=== PATIENT | male | born 1955 | race Caucasian/White ===

== ENCOUNTER 2021-03-15 12:44 | Emergency (ER) | payer MEDICARE, BC, SELFPAY ==
--- NOTE | ~2021-03-15 | XR_ITS ---
EXAMINATION: XR finger 1st LT min 2V INDICATION: Left first finger laceration TECHNIQUE: Three views of the left first finger are obtained. COMPARISON: None available FINDINGS: There is a soft tissue defect involving the distal tuft of the left first finger. No underl rui osseous abnormality is identified. The bones and joint spaces are without acute abnormality. IMPRESSION: 1. Soft tissue defect involving the distal tuft of the left first finger without underlying osseous a bnormality. Reviewed, dictated and finalized at location B. IMPRESSION: 1. Soft tissue defect involving the distal tuft of the left first finger withou t underlying osseous abnormality.
[2021-03-15 12:55] VITALS: BP 134/83; PULSE 90; RESP 12; TEMP 36.8; O2SAT 97
--- NOTE | 2021-03-15 14:33 | ED.WOUNDLAC ---
HPI - Wound/Laceration General Chief Complaint: Wound/Laceration Stated Complaint: lt hand thumb laceration Source: patient and RN notes reviewed Mode of arrival: ambulatory History of Present Illness HPI narrative: This is a 65-year-old male who presented to our urgent care after a laceration to his right thumb status post trauma with a saw. Area was sutured in glue in place there were 4 sutures placed to the site in minimal amount of glue to thin area. Patient does have sensation to the area no bones or ligament visible x-ray completed no fractures dislocation or foreign objects Insight. The patient denies SOB, CP, palpitation, extremity numbness, lightheadedness, dizziness, constipation, diarrhea, chills, or fever. No obvious signs or symptoms of infection Related Data Home Medications Medication Instructions Recorded Confirmed atorvastatin 10 mg tablet 10 mg PO DAILY tablet 07/17/20 07/17/20 bupropion HCl 300 mg 24 hr tablet, mg PO 07/17/20 07/17/20 extended release citalopram 40 mg tablet 40 mg PO DAILY tablet 07/17/20 07/17/20 lamotrigine 100 mg tablet 100 mg PO BID tablet 07/17/20 07/17/20 tamsulosin 0.4 mg capsule mg PO 07/17/20 07/17/20 Allergies Allergy/AdvReac Type Severity Reaction Status Date / Time No Known Allergies Allergy Verified 03/15/21 12:52 Review of Systems Review of Systems: Narrative: A 14 organ system Review of Systems was performed and pertinent positives included in the HPI, otherwise remaining ROS is negative. All systems reviewed & are unremarkable except as noted in HPI and below PMFSH Past Medical History Medical History (Updated 03/15/21 @ 14:32 by JANENE Enrique-Cielo) Anxiety Colon cancer screening Family History Family History Father Dementia Sibling Diabetes mellitus Social History Social History Years smoked: 30 Smoking status: Former smoker Smokeless tobacco user: chewing tobacco Alcohol intake: current Exam Narrative: Exam Narrative: GENERAL: This is a well-nourished, well-developed patient, in no apparent distress. HEAD: normocephalic, atraumatic. EYES: PERRL. Sclera clear/white. Vision is grossly intact. EARS: External ears normal, auditory canals clear and without drainage, TMs normal without perforation. Hearing grossly intact. NOSE: External nose normal with no obvious nasal discharge, nares without redness, no rhinorrhea. THROAT: Mucous membranes moist, posterior pharynx clear. NECK: Neck supple, non-tender without lymphadenopathy, masses or thyromegaly. CARDIOVASCULAR: Regular rate and rhythm without murmurs, gallops, or rubs. RESPIRATORY: Clear to auscultation. Breath sounds equal bilaterally. No wheezes, rales, or rhonchi. GASTROINTESTINAL: Abdomen soft, non-tender, nondistended. Bowel sounds are active. No hepato-splenomegaly, or palpable masses. No guarding. SKIN: Laceration to tip of thumb region areas. Flap of skin placed back in place 4 sutures placed in each corner and glue placed in between suture sites NEURO: awake, alert, and oriented to person, place and time. There were no obvious focal neurologic abnormalities. Steady gait EXTREMITIES: Normal range of motion. No edema. No calf tenderness. Negative Homans sign bilaterally. BACK: Nontender without deformity or crepitance. No flank tenderness. Course Vital Signs Vital signs: Vital Signs Temperature 98.2 F 03/15/21 12:55 Pulse Rate 90 03/15/21 12:55 Respiratory Rate 12 03/15/21 12:55 Blood Pressure 134/83 03/15/21 12:55 Pulse Oximetry 97 03/15/21 12:55 Temperature 98.2 F 03/15/21 12:55 Pulse Rate 90 03/15/21 12:55 Respiratory Rate 12 03/15/21 12:55 Blood Pressure 134/83 03/15/21 12:55 Pulse Oximetry 97 03/15/21 12:55 Discharge Plan Discharge Clinical Impression: Laceration Patient Disposition: Home, Self-Care Condition: Stab
[2021-03-15] MEDS: TETANUS,DIPHTHERIA,AC PERTUSSIS ADULT (0.5 ML) BOOSTRIX IM (14:43)
== END 2021-03-15 14:56 | disposition home or self-care (01) ==
PROVIDERS: Emergency Provider Nurse Practitioner; PCP Internal Medicine
DX: S61.012A Laceration without foreign body of left thumb without damage to nail, initial encounter (principal); W27.0XXA Contact with workbench tool, initial encounter; F41.9 Anxiety disorder, unspecified; Z87.891 Personal history of nicotine dependence; Z23 Encounter for immunization
CPT/HCPCS: 12001; 73140; 90471; 90715; 99213; G0463

== ENCOUNTER 2021-03-27 11:56 | Emergency (ER) | payer MEDICARE, BC, SELFPAY ==
--- NOTE | 2021-03-27 11:57 | ED.GENADULT ---
HPI - General Adult General Chief complaint: Wound/Laceration Stated complaint: remove stitches Time Seen by Provider: 03/27/21 12:07 Source: patient and RN notes reviewed Mode of arrival: ambulatory Limitations: no limitations History of Present Illness HPI narrative: 65-year-old male presents to have sutures removed from LT thumb (1st finger). ?Healing wound to LT thumb (1st finger) with [address] ?No concern for infection of the wound. ?No tenderness, erythema, or swelling to the area. ?No fever or chills. ?No drainage. ?No streaking. ?Nitin has been following recent discharge instructions. ?Dominant hand is the RIGHT HAND. Denies nausea and vomiting. ?Remains active. Immunizations up-to-date. ?The patient reports he has not been diagnosed with COVID-19. ?The patient reports he received 2 Moderna COVID-19 vaccines. ?The patient reports he is not waiting for the results of a COVID-19 lab test. The patient reports he does not have weakness, fatigue, or myalgia. ?The patient reports he does not have a new or worsening cough or shortness of breath. ?The patient reports he does not have any rhinorrhea, congestion, loss of taste, sore throat, and diarrhea. Denies recent traveling. ?Denies concerns for COVID-19 or exposures. ?At this time, the patient is not suspected of having COVID-19. Some parts of this dictation were generated by voice recognition software and may contain typographical and/or grammatical inaccuracies. Related Data Home Medications Medication Instructions Recorded Confirmed atorvastatin 10 mg tablet 10 mg PO DAILY tablet 07/17/20 03/15/21 bupropion HCl 300 mg 24 hr tablet, 300 mg PO DAILY 07/17/20 03/15/21 extended release citalopram 40 mg tablet 40 mg PO DAILY tablet 07/17/20 03/15/21 lamotrigine 100 mg tablet 100 mg PO BID tablet 07/17/20 03/15/21 tamsulosin 0.4 mg capsule 0.4 mg PO DAILY 07/17/20 03/15/21 Allergies Allergy/AdvReac Type Severity Reaction Status Date / Time No Known Allergies Allergy Verified 03/15/21 12:52 Review of Systems Review of Systems: CONSTITUTIONAL: Denies fever, chills, sweats. EYES: Denies visual changes, redness, discharge. ENT: Denies rhinorrhea, congestion, sore throat, otalgia. CARDIOVASCULAR: Denies chest pain, palpitations, edema. RESPIRATORY: Denies dyspnea, wheezing, cough. GASTROINTESTINAL: Denies abdominal pain, nausea, vomiting, diarrhea. SKIN: Denies rash or itching. Complaints of needing sutures removed from the left thumb (1st finger). MUSCULOSKELETAL: Denies acute back pain, joint pain, or myalgia. NEUROLOGIC: Denies numbness or focal weakness. PSYCHIATRIC: Denies anxiety or depression. All other systems reviewed are negative, except as documented in HPI and below. [facility] Past Medical History Medical History (Updated 03/27/21 @ 12:23 by JANENE Schmidt) Anxiety Colon cancer screening Depression History of BPH History of gastroesophageal reflux (GERD) Hypercholesteremia Skin mole Surgical History Surgical History (Updated 03/27/21 @ 12:23 by JANENE Schmidt) History of rhinoplasty History of surgical removal of skin lesion from left ear Family History Family History (Updated 03/27/21 @ 12:24 by JANENE Schmidt) Father , 08/13 COVID n[place]ita Taver[place] Dementia Sibling Diabetes mellitus Mother Breast cancer Lung cancer Social History Social History (Updated 03/27/21 @ 12:24 by JANENE Schmidt) Years smoked: 30 Smoking status: Former smoker Smokeless tobacco user: chewing tobacco Alcohol intake: current Substance use: never Substance use type: does not use Living arrangements: with family Occupation/Education: retired Gender identity (if verbalized by the patient): Male Sexual Orientation (if Verbalized by the Patient): Straight or Heterosexual Comments At time of signature, agree with the nurse past medical, surgical, social, and family history.
[2021-03-27 12:02] VITALS: BP 126/74; PULSE 82; RESP 12; TEMP 36.8; O2SAT 96
== END 2021-03-27 12:24 | disposition home or self-care (01) ==
PROVIDERS: Emergency Provider Nurse Practitioner Family; PCP Internal Medicine
DX: S61.012D Laceration without foreign body of left thumb without damage to nail, subsequent encounter (principal); X58.XXXD Exposure to other specified factors, subsequent encounter; F41.9 Anxiety disorder, unspecified; F32.9 Major depressive disorder, single episode, unspecified; N40.0 Benign prostatic hyperplasia without lower urinary tract symptoms; K21.9 Gastro-esophageal reflux disease without esophagitis; E78.00 Pure hypercholesterolemia, unspecified; Z87.891 Personal history of nicotine dependence
CPT/HCPCS: 99211; G0463

== ENCOUNTER 2021-11-05 09:36 | Outpatient (CLI) | payer MEDICARE, BC, SELFPAY ==
--- NOTE | ~2021-11-05 | XR_ITS ---
XR abdomen/kub 1V 11/05/2021 10:04 INDICATION: Gross hematuria TECHNIQUE: KUB COMPARISON: None FINDINGS: Bowel gas pattern is normal. There is no evidence of free air, mass, organomegaly, ascites or obstruction. No abnormal calculi are seen. The bones appear intact. IMPRESSION: 1: No acute abdominal abnormality identified. Reviewed, dictated and finalized at location B.
--- NOTE | ~2021-11-05 | CT_ITS ---
EXAMINATION: CT abdomen pelvis wo/w con DATE: 11/05/2021 10:27 INDICATION: Gross hematuria. TECHNIQUE: Computed tomography (CT) of the abdomen and pelvis was performed without and with intraven ous contrast using a total of 130 mL Omnipaque-350 intravenous contrast with a double-bolus technique for simultaneous opacification of the renal parenchyma and renal collecting system. Automated exposu re control and iterative reconstruction technique were employed. The dose-length product was 1834.07 mGy-cm. COMPARISON: None FINDINGS: The visualized portions of the lung bases demonstrate mild atelectasis. No pleural effusion. The hear t size is normal. No pericardial effusion. There is a small sliding hiatal hernia. There are cysts in the liver measuring up to 2.7 cm. The gallbladder, spleen, pancreas, adrenal glands, and left kidney are normal. There is a 6.7 cm cyst in right kidney. There is a parenchymal calcification in right ki dney. There is no urolithiasis. The right ureter is not well opacified distally, but is normal. The l eft ureter is well opacified and is normal. There are prostate is mildly enlarged. There is mild diff use bladder wall thickening. Stool distends the rectum. There is diverticulosis of the colon without evidence of diverticulitis. There are no dilated loops of bowel. The appendix is normal. There are no pathologically enlarged lymph nodes. There is no free intraperitoneal fluid. There is severe lumbar spondylosis. There is mild chronic anterior wedging of T11-L1 vertebral bodies. There are bridging en dplate osteophytes at multiple levels in the thoracic spine, consistent with diffuse idiopathic skele jacque hyperostosis (DISH). IMPRESSION: 1. Mild diffuse bladder wall thickening, likely secondary to chronic outlet obstruction from the mild ly enlarged prostate. Reviewed, dictated and finalized at location A. IMPRESSION: 1. Mild diffuse bladder wall thickening, likely secondary to chronic outlet obs truction from the mildly enlarged prostate.
[2021-11-05 10:16] LABS: Estimated Glomerular Filt Rate > 60
== END 2021-11-05 09:37 | disposition home or self-care (01) ==
LOC: ANHIMG 09:38
PROVIDERS: PCP Internal Medicine; Visit Provider Nurse Practitioner Adult Health
DX: R31.0 Gross hematuria (principal); K44.9 Diaphragmatic hernia without obstruction or gangrene; K76.89 Other specified diseases of liver; N40.0 Benign prostatic hyperplasia without lower urinary tract symptoms; K57.90 Diverticulosis of intestine, part unspecified, without perforation or abscess without bleeding; M47.816 Spondylosis without myelopathy or radiculopathy, lumbar region
CPT/HCPCS: 74018; 74178; Q9967